=== PATIENT | female | born 1980 | race Caucasian/White ===

== ENCOUNTER 2019-12-05 11:03 | Emergency (ER) | payer SELFPAY ==
[~2019-12-05] VITALS: Ht 152.4 cm; Wt 85.7 kg
[2019-12-05 15:24] VITALS: BP 152/100; Ht 152.4 cm; Wt 85.7 kg
== END 2019-12-05 15:55 | disposition home or self-care (01) ==
LOC: ED 11:03 → EDBD 11:03 → ED 11:03
DX: U07.1 COVID-19 (principal); B34.9 Viral infection, unspecified
CPT/HCPCS: U0003-CS